=== PATIENT | male | born 1965 | race Caucasian/White ===

== ENCOUNTER 2021-12-04 14:13 | Outpatient (REF) | payer OTHER, SELFPAY ==
[2021-12-04 21:07] LABS: Anion Gap 9.9 mmol/L (3-11); BUN 22 mg/dL (7-18); CO2 24.1 mmol/L (21.0-32.0); CREATININE 1.3 mg/dL (0.70-1.30); Calcium 8.7 mg/dL (8.5-10.1); Chloride 105 mmol/L (98-107); Glucose 122 mg/dL (74-106); Potassium 4.2 mmol/L (3.5-5.1); Sodium 139 mmol/L (136-145)
== END 2021-12-04 14:14 | disposition home or self-care (01) ==
LOC: NCHCN 14:13
PROVIDERS: PCP Internal Medicine; Visit Provider Nurse Practitioner Family
DX: U07.1 COVID-19 (principal); E66.9 Obesity, unspecified
CPT/HCPCS: 80048

== ENCOUNTER 2023-09-20 10:54 | Outpatient (REF) | payer MEDICARE, SELFPAY ==
[2023-09-20 15:07] LABS: Calculated LDL 97 mg/dL (<100); Cholesterol 178 mg/dL (<200); HDL Cholesterol 59 mg/dL (40-60); Triglyceride 112 mg/dL (<150)
== END 2023-09-20 10:55 | disposition home or self-care (01) ==
LOC: NCHCN 10:54
PROVIDERS: PCP Internal Medicine; Visit Provider Nurse Practitioner Family
DX: E78.5 Hyperlipidemia, unspecified (principal)
CPT/HCPCS: 80061

== ENCOUNTER 2024-08-28 07:45 | Outpatient (REF) | payer MEDICARE, SELFPAY ==
[2024-08-28 15:24] LABS: Calculated LDL 92 mg/dL (<100); Cholesterol 175 mg/dL (<200); HDL Cholesterol 53 mg/dL (>or=40); Triglyceride 153 mg/dL (<150)
== END 2024-08-28 07:46 | disposition home or self-care (01) ==
LOC: NCHCN 07:45
PROVIDERS: PCP Internal Medicine; Visit Provider Nurse Practitioner Family
DX: E78.5 Hyperlipidemia, unspecified (principal)
CPT/HCPCS: 80061